=== PATIENT | male | born 1990 | race Caucasian/White ===

== ENCOUNTER 2020-08-24 15:25 | Emergency (ER) | payer SELFPAY ==
[2020-08-24 15:38] VITALS: BP 139/85; PULSE 94; TEMP 97.8; BMI 23.6
[2020-08-24 16:00] LABS: EPITHELIAL CELLS FEW /hpf
== END 2020-08-24 16:36 | disposition home or self-care (01) ==
LOC: FER 15:25
DX: N20.0 Calculus of kidney (principal)
CPT/HCPCS: 81003; 81015; 99284-25